=== PATIENT | female | born 1950 | race Caucasian/White ===

== ENCOUNTER 2019-09-22 10:04 | Outpatient (CLI) | payer MEDICARE, SELFPAY ==
--- NOTE | ~2019-09-22 | MM_ITS ---
EXAMINATION: MM screening [facility] BI w morgan HISTORY: Screening mammogram TECHNIQUE: Craniocaudal and mediolateral oblique 3-D tomosynthesis images were obtained and synthetic 2-D images were generated. CAD analysis was submitted and interpreted. COMPARISON: 08/26/2018, 01/22/2017, 11/15/2015 BREAST PARENCHYMAL COMPOSITION: There are scattered areas of fibroglandular density. FINDINGS: There is no evidence of suspicious mass, calcification, or architectural distortion to sugg est malignancy in either breast. There has been no suspicious interval change. IMPRESSION: 1. No mammographic evidence of malignancy. 2. Recommend routine screening mammography in one year. BI-RADS Category 1: Negative Reviewed, dictated and finalized at location A. OR MEDIA BUYER
== END 2019-09-22 10:05 | disposition home or self-care (01) ==
LOC: ANHIMG 10:08
PROVIDERS: PCP Family Medicine; Visit Provider Obstetrics & Gynecology
DX: Z12.31 Encounter for screening mammogram for malignant neoplasm of breast (principal)
CPT/HCPCS: 77063; 77067

== ENCOUNTER 2021-08-02 10:20 | Outpatient (CLI) | payer MEDICARE, SELFPAY ==
--- NOTE | ~2021-08-02 | MM_ITS ---
EXAMINATION: MM screening [facility] BI w morgan HISTORY: Screening TECHNIQUE: Craniocaudal and mediolateral oblique 3-D tomosynthesis images were obtained and synthetic 2-D images were generated. CAD analysis was submitted and interpreted. COMPARISON: Comparison to multiple prior studies sequentially, with oldest reviewed study dated 05/05. BREAST PARENCHYMAL COMPOSITION: There are scattered areas of fibroglandular density. FINDINGS: There is no evidence of suspicious mass, calcification, or architectural distortion to sugg est malignancy in either breast. There has been no suspicious interval change. IMPRESSION: 1. No mammographic evidence of malignancy. 2. Recommend routine screening mammography in one year. BI-RADS Category 1: Negative Reviewed, dictated and finalized at location A. ERIES OFFICER
== END 2021-08-02 10:21 | disposition home or self-care (01) ==
PROVIDERS: PCP Family Medicine; Visit Provider Obstetrics & Gynecology
DX: Z12.31 Encounter for screening mammogram for malignant neoplasm of breast (principal)
CPT/HCPCS: 77063; 77067

== ENCOUNTER 2024-02-27 10:17 | Outpatient (CLI) | payer MEDICARE, SELFPAY ==
--- NOTE | ~2024-02-27 | MM_ITS ---
EXAMINATION: MM screening [facility] BI w morgan HISTORY: Screening TECHNIQUE: Craniocaudal and mediolateral oblique 3-D tomosynthesis images were obtained and synthetic 2-D images were generated. CAD analysis was submitted and interpreted. COMPARISON: Comparison to multiple prior studies sequentially, with oldest reviewed study dated 07/06. BREAST PARENCHYMAL COMPOSITION: There are scattered areas of fibroglandular density. FINDINGS: There is no evidence of suspicious mass, calcification, or architectural distortion to sugg est malignancy in either breast. There has been no suspicious interval change. IMPRESSION: 1. No mammographic evidence of malignancy. 2. Recommend routine screening mammography in one year. BI-RADS Category 1: Negative Reviewed, dictated and finalized at location B.
== END 2024-02-27 10:18 | disposition home or self-care (01) ==
PROVIDERS: PCP Family Medicine; Visit Provider Obstetrics & Gynecology
DX: Z12.31 Encounter for screening mammogram for malignant neoplasm of breast (principal)
CPT/HCPCS: 77063; 77067

== ENCOUNTER 2025-03-24 13:57 | Outpatient (CLI) | payer MEDICARE, SELFPAY ==
--- NOTE | ~2025-03-24 | MM_ITS ---
EXAMINATION: MM screening [facility] BI w morgan HISTORY: Screening mammogram TECHNIQUE: Craniocaudal and mediolateral oblique 3-D tomosynthesis images were obtained and synthetic 2-D images were generated. CAD analysis was submitted and interpreted. COMPARISON: 02/27/2024, 01/07/2023, 08/02/2021 BREAST PARENCHYMAL COMPOSITION:Not Dense. There are scattered areas of fibroglandular density. FINDINGS: No suspicious mass, calcification, or architectural distortion are identified in either breast to suggest malignancy. There has been no suspicious interval change. IMPRESSION: No mammographic evidence of malignancy. Recommend routine screening mammography in one year. BI-RADS Category 1: Negative Reviewed, dictated and finalized at location .
--- OUTSIDE RECORDS SUMMARY | 2025-03-24 14:11 | XMS_ITS | Clinical Summary ---
Author Organization [facility] Address [address] [place] [id number] Care Team Providers Care Relief Captain Name Role Phone Baldemar Chapin MD Primary Care Provider [phone] Radha Ellis MD Unavailable [phone] Dwight Conroy MD Unavailable Allergies No known active allergies Medications aspirin 81 mg capsuleIndications: Malignant lymphoma, lymphoplasmacytic Aspir-81 020 Active cholecalciferol (VITAMIN D-3) 25 mcg (1,000 unit) tabletIndications:M alignant lymphoma, lymphoplasmacytic Take 1 tablet by mouth 2 (two) times a day Active losartan (COZAAR) 50 mg tabletIndications:M alignant lymphoma, lymphoplasmacytic losartan 50 mg tablet 1 016 Active levothyroxine (SYNTHROID) 100 mcg tabletIndications:M alignant lymphoma, lymphoplasmacytic Take 1 tablet by mouth daily Active hydroCHLOROthiazide (HYDRODIURIL) 12.5 mg tabletIndications:M alignant lymphoma, lymphoplasmacytic hydrochlorothiazide 12.5 mg tablet Active pravastatin (PRAVACHOL) 20 mg tabletIndications:M alignant lymphoma, lymphoplasmacytic Take 1 tablet by mouth daily Active celecoxib (CeleBREX) 200 mg capsuleIndications: Malignant lymphoma, lymphoplasmacytic celecoxib 200 mg capsule 016 Active enalapriL-hydrochlo rothiazide 5-12.5 mg per tabletIndications:M alignant lymphoma, lymphoplasmacytic Take 1 tablet by mouth daily Active levocetirizine (XYZAL) 5 mg tabletIndications:M alignant lymphoma, lymphoplasmacytic Take 5 mg by mouth daily 014 Active omeprazole (PriLOSEC) 40 mg capsuleIndications: Malignant lymphoma, lymphoplasmacytic omeprazole 40 mg capsule,delayed release 021 Active Active Problems No known active problems Immunizations Immunization Administration Dates Next Due Hep A, Adult 04/17/2000,10/11/1999 Hep B Vaccine 12/20/1993,07/24/1993,06/25/1993 Influenza, Quadrivalent, Spl it, Intramuscular 04/19/2021,05/10/2020,05/12/2019,05/01,05/07/2017 Influenza, Trivalent, IM (MDV) 04/25/2014,2012,05/01/2012 Influenza, Unspecified 04/04/2015 Pneumococcal Conjugate PCV 13 06/03/2017 Pneumococcal Polysaccharide PPV23 05/23/2016 ZOSTER Recombinant 08/10/2020,06/08/2020 Surgical History Surgery Date Site/Laterality Comments CHOLECYSTECTOMY HYSTERECTOMY Medical History Medical History Date Comments Hypertension Osteoporosis Thyroid disease Family History Medical History Relation Name Comments No Known Problems Brother COPD Father Heart disease Mother No Known Problems Sister Relation Name Status Comments Brother Alive Father Mother Sister Alive Social History Tobacco Use Types Packs/Day Years Used Date Smoking Tobacco: Former Cigarettes Q uit: 1975 Smokeless Tobacco: Never Tobacco Cessation:Counseling Given: No AUDIT-C Answer Date Recorded Q1: How often do you have a drink containing alc ohol? Never 10/05/2021 Q2: How many drinks containi ng alcohol do you have on a typical day when you are drinking? 1 or 2 10/05/2021 Q3: How often do you have six or more drinks on one occasion? 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 Gender Identity Not on file Sexual Orientation Not on file Obstetrics History Last Filed Vital Signs Vital Sign Reading Time Taken Comments Blood Pressure 174/80 10/05/2021 1:00 PM LIQUOR GALLERY OPERATOR Pulse 89 10/05/2021 1:00 PM LIQUOR GALLERY OPERATOR Temperature 36.6 C (97.8 F) 10/05/2021 1:00 PM LIQUOR GALLERY OPERATOR Respiratory Rate 16 10/05/2021 1:00 PM LIQUOR GALLERY OPERATOR Oxygen Saturation 95% 10/05/2021 1:00 PM LIQUOR GALLERY OPERATOR Inhaled Oxygen Concentration - - Weight 115.7 kg (255 lb) 10/05/2021 1:00 PM LIQUOR GALLERY OPERATOR Height 165.1 cm (5' 5) 10/05/2021 1:00 PM LIQUOR GALLERY OPERATOR Body Mass Index 42.43 10/05/2021 1:00 PM LIQUOR GALLERY OPERATOR Plan of Treatment Not on file Insurance [facility] Address: [address] [phone] [address] [id number] Care Teams Relief Captain Relationship Specialty Start Date End Date Baldemar Chapin MD PCP - General Family Medicine 08/29/21 Radha Ellis MD [address] [place] [id number] Medical Oncologist Hematology and Oncology 08/29/21 Dwight Conroy MD [address] [place] [id number] Consulting Physician Medical Oncology 08/29/21
--- OUTSIDE RECORDS SUMMARY | 2025-03-24 14:11 | XMS_ITS | Clinical Summary ---
Author Organization [facility] Address [address] [place] [address] Care Team Providers Care Television Director Name Role Phone Baldemar Chapin MD Primary Care Provider [phone] Source Comments [facility],non-owned Affiliates and Associated Physician Practices is amultiple site organization consisting of ambulatory clinics and hospital sitesin [place], [place], [place] and [place]. This disclosure is being madepursuant to the Care Everywhere program and may not contain all information available regarding this patient. Last updated 18.[facility] Allergies No known active allergies Medications * Be aware that medications may not be up to date on this document. Alwaysverify current medications with the patient. fluticasone propionate (FLONASE) 50 MCG/ACT nasal spray 7 Active losartan (COZAAR) 50 MG tablet Take 50 mg by mouth DAILY. 6 Active celecoxib (CELEBREX) 200 MG capsule Take 200 mg by mouth DAILY. 6 Active levocetirizine (XYZAL) 5 MG tablet Take 5 mg by mouth once daily 4 Active levothyroxine (SYNTHROID) 100 MCG tablet Take 100 mcg by mouth daily before breakfast 4 Active pravastatin (PRAVACHOL) 20 MG tablet Take 20 mg by mouth at bedtime 5 Active hydroCHLOROthia zide (HYDRODIURIL) 12.5 MG Take 25 mg by mouth once daily Active aspirin (ASPIRIN) 81 MG tablet Take 81 mg by mouth once daily Active Cholecalciferol (VITAMIN D-[address]) 25 MCG (1000 UT) Take 1 tablet by mouth 2 times daily Active Active Problems Problem Noted Date Diagnosed Date Rectocele 04/01/2017 Morbid (severe) obesity due to excess calories 0 10/18/2014 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 Family History Medical History Relation Name Comments Cancer - Breast Maternal Grandmother Diabetes Mother Heart Disease Mother Hypertension Mother Relation Name Status Comments Maternal Grandmother Mother Social History Tobacco Use Types Packs/Day Years Used Date Smoking Tobacco: Former Smokeless Tobacco: Never Tobacco Cessation:Counseling Given: No Alcohol Use Standard Drinks/Week Comments No 0 (1 standard drink = 0.6 oz pur e alcohol) Comments No Sex and Gender Information Value Date Recorded Sex Assigned at Not on file 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 Gender Identity Not on file Sexual Orientation Not on file Last Filed Vital Signs Vital Sign Reading Time Taken Comments Blood Pressure 136/70 02/29/2020 10:32 AM CDT Pulse 98 12/10/2018 10:42 AM CDT Temperature - - Respiratory Rate - - Oxygen Saturation - - Inhaled Oxygen Concentration - - Weight 114.9 kg (253 lb 6.4 oz) 020 10:32 AM CDT Height 167.6 cm (5' 6) 02/29/2020 10:3 2 AM CDT Body Mass Index 40.9 02/29/2020 10:32 AM CDT Plan of Treatment Health Maintenance Due Date Last Done Comments BONE DENSITY TESTING 1950 COLOGUARD (AGES 45-75) - COL ON CA SCREENING 1952 COLON MONITORING 1952 COLONOSCOPY - COLON CA SCREENING 1952 CT COLONOGRAPHY - COLON CA SCREENING 1950 Colorectal Cancer Screening 1950 FIT - COLON CA SCREENING 1952 FLEX SIG - COLON CA SCREENING 1950 MAMMOGRAM 1950 HEPATITIS C SCREENING 11/22/1970 DTAP/TDAP/TD VACCINES (1 - Tdap) 11/27/1971 PNEUMOCOCCAL VACCINE 50+ (1 of 1 - PCV) 2002 ZOSTER VACCINE (1 of 2) 2002 Respiratory Syncytial Virus (RSV) Vaccine Pt: or over 60 yrs (1 - Risk 60-74 years 1-dose series) 2012 SCREENING FOR DIABETES 02/29/2020 COVID-19 VACCINE (1 - 2023-2 5 season) 2024 DEPRESSION SCREENING 08/04/2024 INFLUENZA VACCINE (#1) 2025 04/04/2015 HEPATITIS B VACCINE Aged Out No longe r eligible based on patient's age to complete this topic HIB VACCINE Aged Out No longer eligi ble based on patient's age to complete this topic HPV VACCINE Aged Out No longer eligi ble based on patient's age to complete this topic MENINGOCOCCAL (Group B) VACC INE SHARED DECISION-MAKING Aged Out No longer eligibl e based on patient's age to complete this topic MENINGOCOCCAL GROUPS A/C/Y/W VACCINE Aged Out No longer eligible b ased on patient's age to complete this topic Insurance [facility]NAG[facility] MEDICARE ADV Care Teams Television Director Relationship Specialty Start Date End Date Baldemar Chapin MD [address] [place] [phone] PCP - General 07/30/16
--- OUTSIDE RECORDS SUMMARY | 2025-03-24 14:11 | XMS_ITS | Clinical Summary ---
Author Organization [facility] Address [address] [place] [address] Care Team Providers Care Metal Control Worker Name Role Phone Baldemar Chapin MD Primary Care Provider Allergies No known active allergies Medications Levocetirizine Dihydrochloride (XYZAL) 5 MG Tab Take 1 tablet (5 mg total) by mouth daily. Active levothyroxine (SYNTHROID) 100 MCG tablet Take 1 tablet (100 mcg total) by mouth daily. Active pravastatin 20 MG tablet Take 1 tablet (20 mg total) by mouth daily. Active fluticasone propionate 50 MCG/ACT nasal spray 02/18/20 1 7 Active hydrochlorothiazide 12.5 MG tablet Take 2 tablets (25 mg total) by mouth. Active losartan 50 MG tablet Take 1 tablet (50 mg total) by mouth. 6 Active Aspirin Buf,QjAntq-VoKxgj-Kt O, 81 MG Tab Take 81 mg by mouth daily. Active omeprazole 40 MG capsule 1 Active celecoxib (CELEBREX) 200 MG capsule 3 Active cholecalciferol (VITAMIN D-[address]) 25 mcg Tab tablet Take 1 tablet (25 mcg total) by mouth 2 (two) times daily. 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 04/10/2021 History of malignant carcinoid tumor of bronchus and lung 04/10/2021 Malignant lymphoma, lymphoplasmacytic (CMS/HCC H HS/HCC) 04/10/2021 Knee pain 03/06/2021 Osteoarthritis of knee 03/06/2021 Abnormal blood chemistry 03/06/2021 Acquired pes planus of right foot 11/06/2020 Rectocele 04/01/2017 Pneumonia of right lower lobe due to infectious organism 04/05/2016 Nodule of right lung 04/05/2016 Abnormal findings on diagnos tic imaging of other specified body structures 03/27/2016 Community acquired pneumonia 03/27/2016 Morbid (severe) obesity due to excess calories 0 10/18/2014 History of endometrial cancer 09/06/2014 Resolved Problems Problem Noted Date Diagnosed Date Resolved Date Encounter for preventive health examination 03/26/2016 04/14/2020 Encounters Date Type Department Care Team Description 03/16/2025 10:40 AM CDT Office Visit [facility] - [place] [address] [place] [address] Enio Lee MD New Patient (Right foot ) 03/16/2025 Travel 03/11/2025 Orders Only [facility] [place] [address] [place] [address] Enio Lee MD 03/04/2025 Telephone [facility] [place] [address] [address] Enio Lee MD Appointment Request 02/14/2025 1:00 PM CDT Office Visit [address] [place] [address] Yamileth Colon, APNP Lab Results; Follow Up (Monoclonal gammopathy associated with lymphoplasmacytic dyscrasias) 02/14/2025 12:50 PM CDT - 02/14/2025 11:59 PM CDT Hospital Encounter [facility] [address] [place] [address] Yamileth Colon APNP Discharge Disposition: Home or Self Care (Routine Discharge) 02/14/2025 Orders Only [facility] [address] [place] [address] Radha Ellis MD 02/14/2025 Travel 02/07/2025 2:00 PM CDT - 02/07/2025 11:59 PM CDT Hospital Encounter [facility] [address] [place] [address] Yamileth Colon APNP Discharge Disposition: Home or Self Care (Routine Discharge) 02/07/2025 Travel 02/02/2025 10:40 AM CDT Office Visit [facility] - [address], [place] [address] Cade Grant, TYSHAWN Arthritis (Pt is here for a Rt foot injection. She would like an injection. The last injection lasted for a couple of mo before it wore off./JRR) 02/02/2025 Travel from Last 3 Months Immunizations Immunization Administration Dates Next Due Hepatitis A (Havrix [address]) 04/17/2000,1999 Hepatitis B (Generic: Adult) 12/20/1993,07/24/19 93,06/25/1993 Influenza (Generic) 05/10/2020, 9,05/01/2018,05/07/2017,0 04/04/2015,04/25/2014,04/30/2013,05/01/2012 Influenza Adult (Generic) 04/19/2021,02/2020,05/12/2019,05/01/2018,1 ,04/25/2014,04/30/2013,05/01/2012 Pneumococcal (Pneumovax 23) 05/23/2016 Pneumococcal (Prevnar 13) 06/03/2017 Shingrix 08/10/2020,06/08/2020 Family History Medical History Relation Comments COPD Father Diabetes Mother Heart Disease Mother Hypertension Mother Relation Status Comments Father Alive Mother Alive Social History Tobacco Use Types Packs/Day Years Used Date Smoking Tobacco: Former Cigarettes 0.3 4 Q uit: 07/15/1975 Smokeless Tobacco: Never Alcohol Use Standard Drinks/Week Comments Yes 3.3 (1 standard drink = 0.6 oz p ure alcohol) AUDIT-C Answer Date Recorded Frequency of Alcohol Consumption Monthly or less 03/01/2019 Average Number of Drinks Not on file 019 Frequency of Binge Drinking Not on file 02/02 PHQ-2 Answer Date Recorded Patient Health Questionnaire-2 Score 0 03/16/2025 Comments No Sex and Gender Information Value Date Recorded Sex Assigned at Female 02/14/2025 12:51 PM CDT Legal Sex Female 10:53 PM VALVE MAKER Gender Identity Not on file Sexual Orientation Not on file Last Filed Vital Signs Vital Sign Reading Time Taken Comments Blood Pressure 120/62 03/16/2025 10:56 AM CDT Pulse 87 03/16/2025 10:56 AM CDT Temperature 37.2 C (98.9 F) 03/16/2025 10:56 AM CDT Respiratory Rate 16 02/14/2025 1:01 PM CDT Oxygen Saturation 100% 02/14/2025 1:01 PM CDT Inhaled Oxygen Concentration - - Weight 117.5 kg (259 lb) 03/16/2025 10:56 AM CDT Height 167.6 cm (5' 6) 03/16/2025 10:56 AM CDT Body Mass Index 41.8 03/16/2025 10:56 AM CDT Plan of Treatment Upcoming Encounters Date Type Department Care Team (Late st Contact Info) Description 06/01/2025 11:00 AM CDT Office Visit [facility] [place] [address] [facility] [facility], [place] [address] Cade Grant, DPForrest [address] [place] [address] 08/23/2025 12:00 PM VALVE MAKER [place] [facility] [facility] [id number] [facility] [place] [address] Radha Ellis MD [address] [place] [phone] 08/30/2025 12:00 PM VALVE MAKER Office Visit [address] [place] [address] Radha Ellis MD [address] [place] [phone] Health Maintenance Due Date Last Done Comments Colorectal Cancer Screening Colonoscopy (10 Years) 1952 Hepatitis C 1970 DTaP, Tdap and Td Vaccines ( 1 - Tdap) 11/27/1971 Mammogram Screening 1992 RSV Immunization or 60+ Years (1 - Risk 60-74 years 1-dose series) 2012 Annual Medicare Wellness Visit 2017 Dexa Scan (General) 2017 Pneumococcal Vaccine: 50+ Years (3 of 3 - PCV20 or PCV21) 06/03/2022 06/03/2017, 05/23/2016 COVID-19 Vaccine (3 - 2023-2 5 season) 2024 10/18/2020, 09/27/2020 Zoster Vaccines Completed 08/10/2020, 06/08/2020 PHQ-2 (Physician [place]) Completed 03/16/2025 Meningococcal B Vaccine Aged Out No l onger eligible based on patient's age to complete this topic Meningococcal Vaccine Aged Out No luli nisreen eligible based on patient's age to complete this topic RSV Immunizations Under 20 Months Aged Out No longer eligible b ased on patient's age to complete this topic Procedures Procedure Name Priority Date/Time Associated Diagnosis Comments OXR RT FOOT M3V Routine 03/16/2025 10:55 AM CDT Right foot pain PROTEIN, ELECTROPHORESIS Routine 02/07/2025 2:11 PM CDT History of malignant carcinoid tumor of bronchus and lung KAPPA LAMBDA FREE RATIO (QST) Routine 02/07/2025 2:11 PM CDT History of malignant carcinoid tumor of bronchus and lung IMMUNOFIXATION Routine 02/07/2025 2:11 PM CDT History of malignant carcinoid tumor of bronchus and lung IMMUNOGLOBULIN M Routine 02/07/2025 2:11 PM CDT History of malignant carcinoid tumor of bronchus and lung COMPREHENSIVE METABOLIC PANEL Routine 02/07/2025 2:11 PM CDT History of malignant carcinoid tumor of bronchus and lung CBC W/DIFF AUTOMATED Routine 02/07/2025 2:11 PM CDT History of malignant carcinoid tumor of bronchus and lung from Last 3 Months Results * OXR RT FOOT M3V (03/16/2025 10:55 AM CDT) Anatomical Region Laterality Modality Radiographic Bharati ging Narrative 03/16/2025 11:46 AM CDT PROCEDURE: OXR RT FOOT M3V VIEWS: 3 DATE: 03/16/25 CLINICAL INDICATION: FINDINGS: Severe pes planus with decreased Meary's angle. Significant degenerative change of the subtalar joint, calcaneocuboid joint, and talonavicular joints. There is also abduction deformity through the talonavicular joint on the AP and oblique views. No fractures. 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 Enio [place] MD GENERAL IMAGING Final Result * (ABNORMAL) KAPPA LAMBDA FREE RATIO (QST) (02/07/2025 2:11 PM CDT) KAPPA FREE LIGHT CHAIN 70.9(H) 3.3 - 19.4 mg/L 02/10/2025 4:51 AM CDT [facility] SHANTA NAGY LAMBDA FREE LIGHT CHAIN 9.2 5.7 - 26.3 mg/L 02/10/2025 4:51 AM CDT [facility] TEO-KRISTINE LLY KAPPA/LAMBDA FREE 7.71(H) 0.26 - 1.65 02/10/2025 4:51 AM CDT [facility] SHANTA NAGY Comment: Free kappa/lambda ratio in serum of normal individuals is 0.26-1.65. Excess production of free kappa or lambda chains can alter the ratio. Monoclonal free light chains are found in the serum of patients with multiple myeloma, Waldenstrom's macroglobulinemia, mu-heavy chain disease, primary amyloidosis, light chain deposition disease, monoclonal gammopathy of undetermined significance, and lymphoproliferative disorders. Measurement of free light chain concen- tration in serum is useful for diagnosis, prognosis, monitoring disease activity and following response to therapy of these disorders. Test Performed by [employer], [facility], [address] [place] [address] Caleb Geiger M.D., Ph.D., Director of Laboratories , [place] [id number] 02/07/2025 2:11 PM CDT [facility] Final Res ult Performing Organization Address City/[facility]/ZIP Co de Phone Number [employer] [place] [id number] [place], [place] , [place] [phone] * (ABNORMAL) IMMUNOGLOBULIN M (02/07/2025 2:11 PM CDT) IGM 3,570.0(H) 40.0 - 230.0 MG/DL 02/08/2025 1:32 PM CDT [facility] 02/07/2025 2:1 1 PM CDT [facility] Final Res ult [facility] [address] [place] [address], [place] [phone] * (ABNORMAL) COMPREHENSIVE METABOLIC PANEL (02/07/2025 2:11 PM CDT) SODIUM S/P/B 137 136 - 145 MMOL/L 02/07/2025 2:32 PM CDT [facility] POTASSIUM S/P/B 3.7 3.5 - 5.1 MMOL/L 02/07/2025 2:32 PM CDT [facility] CHLORIDE S/P/B 98 98 - 107 MMOL/L 02/07/2025 2:32 PM CDT [facility] CO2 34.0(H) 21.0 - 32.0 MMOL/L 02/07/2025 2:32 PM CDT [facility] GLUCOSE 112(H) 70 - 99 MG/DL 02/07/2025 2:32 PM CDT [facility] Comment: FASTING GLUCOSE 100 TO 125 MG/DL IS CONSISTENT WITH IMPAIRED FASTING GLUCOSE. FASTING GLUCOSE >125 MG/DL IS CONSISTENT WITH DIABETES. RANDOM GLUCOSE >200 MG/DL WITH HYPERGLYCEMIC SYMPTOMS IS CONSISTENT WITH DIABETES. PER ADA GUIDELINES BUN 15 6 - 24 MG/DL 02/07/2025 2:32 PM CDT [facility] CREATININE S/P/B 0.70 0.55 - 1.02 MG/DL 02/07/2025 2:32 PM CDT [facility] CALCIUM S/P/B 9.3 8.4 - 10.5 MG/DL 02/07/2025 2:32 PM CDT [facility] BILIRUBIN TOTAL S/P/B 0.4 0.2 - 1.0 MG/DL 02/07/2025 2:32 PM CDT [facility] Comment: THIS ASSAY IS NOT RECOMMENDED FOR PATIENTS UNDERGOING TREATMENT WITH ELTROMBOPAG DUE TO THE POTENTIAL FOR FALSELY ELEVATED RESULTS. ALKALINE PHOSPHATASE S/P/B 69 55 - 142 U/L 02/07/2025 2:32 PM CDT [facility] AST 16 15 - 37 U/L 02/07/2025 2:32 PM CDT [facility] ALT 16 14 - 59 U/L 02/07/2025 2:32 PM CDT [facility] TOTAL PROTEIN S/P/B 9.5(H) 6.4 - 8.2 G/DL 02/07/2025 2:32 PM CDT [facility] ALBUMIN S/P/B 2.9(L) 3.4 - 5.0 G/DL 02/07/2025 2:32 PM CDT [facility] ANION GAP 5.0 5.0 - 15.0 MMOL/L 02/07/2025 2:32 PM CDT [facility] OSMOLALITY (CALC) 286 MOSM/KG 025 2:32 PM CDT [facility] Comment:REFERENCE RANGE NOT ESTABLISHED GFR ESTIMATE >90 >89 ML/MIN/1. 73 M2 02/07/2025 2:32 PM CDT [facility] GFR NOTES GFR REFERENCE S: 02/07/2025 2:32 PM CDT [facility] Comment: THE ESTIMATED GFR IS CALCULATED USING THE 2020 CKD-EPI EQUATION. THE FOLLOWING CATEGORIES FOR GRADING RENAL FUNCTION ARE RECOMMENDED BY THE INTERNATIONAL SOCIETY OF NEPHROLOGY (KDIGO 2012 CLINICAL PRACTICE GUIDELINE). G1,NORMAL OR HIGH: >89 ml/min/1.73 m2 G2,MILDLY DECREASED: 60-89 ml/min/1.73 m2 G3A,MILDLY TO MODERATELY DECREASED: 45-59 ml/min/1.73 m2 G3B,MODERATELY TO SEVERELY DECREASED: 30-44 ml/min/1.73 m2 G4,SEVERELY DECREASED: 15-29 ml/min/1.73 m2 G5,KIDNEY FAILURE: <15 ml/min/1.73 m2 02/07/2025 2:11 PM CDT [facility] Final Res ult [facility] [address] [place] [address], * IMMUNOFIXATION (02/07/2025 2:11 PM CDT) IMMUNOFIXATION SERUM SEE PATHOLOGIST'S INTERPRETATION 02/09/2025 3:24 PM CDT [facility] IMMUNOFIX (SERUM) INTERPRETATION THIS SERUM IMMUNOTYPING WAS INTERPRETED BY 02/10/2025 3:02 PM CDT [facility] Comment: DR CALEB HALL MONOCLONAL PROTEIN DETECTED: IgM KAPPA. 02/07/2025 2:11 PM CDT us [facility] Final Res ult [facility] [address] [place] [address], [phone] * (ABNORMAL) CBC W/DIFF AUTOMATED (02/07/2025 2:11 PM CDT) WBC 6.57 4.00 - 10.80 x10'3/uL 02/07/2025 2:17 PM CDT [facility] RBC 3.71(L) 4.10 - 5.40 x10'6/uL 02/07/2025 2:17 PM CDT [facility] HGB 10.2(L) 12.0 - 16.0 G/DL 02/07/2025 2:17 PM CDT [facility] HCT 32.8(L) 36.0 - 47.0 % 02/07/2025 2:17 PM CDT [facility] MCV 88.4 78.0 - 100.0 FL 02/07/2025 2:17 PM CDT [facility] MCH 27.5 27.0 - 31.0 PG 02/07/2025 2:17 PM CDT [facility] MCHC 31.1(L) 33.0 - 36.0 G/DL 02/07/2025 2:17 PM CDT [facility] RDW 15.1(H) 11.5 - 14.5 % 02/07/2025 2:17 PM CDT [facility] PLT 290 150 - 350 x10'3/uL 02/07/2025 2:17 PM CDT [facility] MPV 9.2 7.4 - 10.4 FL 02/07/2025 2:17 PM CDT [facility] CBC COMMENT NORMAL REFERENCE RANGE NOT ESTABLISHED FOR THE PROPORTIONAL LEUKOCYTE DIFFERENTIAL. 02/07/2025 2:17 PM CDT [facility] NEUTROPHILS % 54.7 % 02/07/2025 2:17 PM CDT [facility] LYMPHOCYTES % 28.9 % 02/07/2025 2:17 PM CDT [facility] MONOCYTES % 13.2 % 02/07/2025 2:17 PM CDT [facility] EOSINOPHILS % 2.3 % 02/07/2025 2:17 PM CDT [facility] BASOPHILS % 0.6 % 02/07/2025 2:17 PM CDT [facility] IMMATURE GRANS % 0.3 % 02/08/20 2:17 PM CDT [facility] NRBC % 0.0 % 02/07/2025 2:17 PM CDT [facility] ABS. NEUTROPHILS 3.59 1.60 - 8.30 x10'3/uL 02/07/2025 2:17 PM CDT [facility] ABS. LYMPHOCYTES 1.90 0.80 - 4.70 x10'3/uL 02/07/2025 2:17 PM CDT [facility] ABS. MONOCYTES 0.87 0.00 - 1.50 x10'3/uL 02/07/2025 2:17 PM CDT [facility] ABS. EOSINOPHILS 0.15 0.00 - 0.40 x10'3/uL 02/07/2025 2:17 PM CDT [facility] ABS. BASOPHILS 0.04 0.00 - 0.20 x10'3/uL 02/07/2025 2:17 PM CDT [facility] ABS. IMMATURE GRANULOCYTES 0.02 0.00 - 0.03 x10'3/uL 02/07/2025 2:17 PM CDT [facility] ABS. NUCLEATED RBC'S 0.00 0.00 - 0.01 x10'3/uL 02/07/2025 2:17 PM CDT [facility] 02/07/2025 2:11 PM CDT us [facility] Final Res ult [facility] [address] [place] [address], [place] [phone] * (ABNORMAL) PROTEIN, ELECTROPHORESIS (02/07/2025 2:11 PM CDT) TOTAL PROTEIN S/P/B 9.5(H) 6.0 - 8.3 G/DL 02/09/2025 3:19 PM CDT [facility] ALBUMIN S/P/B 3.9 3.4 - 4.9 G/DL 02/09/2025 3:18 PM CDT [facility] [id number] S/P/B 0.4 0.2 - 0.4 G/DL 02/09/2025 3:18 PM CDT [facility] [id number] S/P/B 0.9 0.4 - 1.0 G/DL 02/09/2025 3:18 PM CDT [facility] BETA GLOBULIN S/P/B 0.7 0.5 - 1.2 G/DL 02/09/2025 3:18 PM CDT [facility] GAMMA GLOBULIN S/P/B 3.7(H) 0.6 - 1.6 G/DL 02/09/2025 3:18 PM CDT [facility] ELECTROPHORESIS INTERPRETATION THIS SERUM PEP WAS INTERPRETED BY 02/10/2025 3:02 PM CDT [facility] Comment: DR CALEB HALL FOLLOW UP OF A PREVIOUSLY DIAGNOSED MONOCLONAL PROTEIN. IgM KAPPA THE ABNORMAL BAND CURRENTLY MEASURES 3.12 g/dL. 02/07/2025 2:11 PM CDT [facility] Final Res ult [facility] [address] [place] [address], [place] [phone] [id number] from Last 3 Months Insurance [employer] Care Teams Metal Control Worker Relationship Specialty Start Date End Date Baldemar Chapin MD [address] [place] [phone] PCP - General FAMILY PRACTICE 02/24/19
== END 2025-03-24 13:58 | disposition home or self-care (01) ==
LOC: ANHFOHIMG 13:58
PROVIDERS: PCP Family Medicine; Visit Provider Obstetrics & Gynecology
DX: Z12.31 Encounter for screening mammogram for malignant neoplasm of breast (principal)
CPT/HCPCS: 77063; 77067